=== PATIENT | female | born 1990 | race Caucasian/White ===

== ENCOUNTER 2021-06-05 12:32 | Emergency (ER) | payer OTHER ==
[~2021-06-05] VITALS: Ht 149.9 cm; Wt 88.5 kg
[2021-06-05 12:32] VITALS: BP 145/76
--- NOTE | 2021-06-05 12:32 | NUR ---
wes CASEY via gurney to bed 06.
--- NOTE | 2021-06-05 12:45 | NUR ---
Patient is a 31 y/o female [place] from work c/o chest pain, sudden onset, non provoked, substernal 06/18. Pain is now intermittent, lasting two minutes. Patient states that she was given ASA but has not felt relief; pain continues to be a pulsating pain 06/18. PMH: denies Rx: denies NKA
--- NOTE | 2021-06-05 13:00 | NUR ---
semiconductor processing technician at the bedside.
--- NOTE | 2021-06-05 13:20 | NUR ---
Lab at bedside for blood draw.
[2021-06-05 13:26] LABS: BASOPHILS % (AUTO) 0.3 % (0.0-2.0); EOSINOPHILS # (AUTO) 0.2 K/uL (0-0.4); EOSINOPHILS % (AUTO) 2.8 % (0.0-4.0); HEMATOCRIT 37.4 % (36-48); HEMOGLOBIN 12.4 g/dL (12.0-16.0); LYMPHOCYTES % (AUTO) 31.2 % (20.5-51.1); MEAN CORPUSCULAR HEMOGLOBIN 27 pg (27-31); MEAN CORPUSCULAR HGB CONC 33 g/dL (33-37); MONOCYTES # (AUTO) 0.4 K/uL (0.8-1.0); MONOCYTES % (AUTO) 5.8 % (1.7-9.3); NEUTROPHILS # (AUTO) 3.7 K/uL (1.8-7.7); NEUTROPHILS % (AUTO) 59.9 % (42.2-75.2); PLATELET COUNT (AUTO) 230 K/uL (140-450); RED BLOOD CELL COUNT(AUTO) 4.56 MIL/uL (4.20-5.40); WHITE BLOOD COUNT (AUTO) 6.3 K/uL (4.8-10.8)
[2021-06-05 13:38] LABS: ANION GAP 9.7 (8-16); CARBON DIOXIDE 26.6 mmol/L (21-32); CREATININE 0.6 mg/dL (0.6-1.3); POTASSIUM 3.3 mmol/L (3.5-5.1)
--- NOTE | 2021-06-05 14:00 | NUR ---
Dr. Soriano at the bedside evaluating the patient.
[2021-06-05] MEDS ORDERED: KETOROLAC 60 MG/2 ML VIAL IM ONE (14:05)
--- NOTE | 2021-06-05 15:00 | NUR ---
Patient resting comfortably in bed with family at the bedside. VSS, bed locked in the lowest position and call light within reach.
--- NOTE | 2021-06-05 15:20 | NUR ---
Dr. Soriano at the bedside re-evaluating the patient.
[2021-06-05] MEDS ORDERED: NAPR-1704 PO (15:22)
[2021-06-05 15:38] VITALS: BP 145/76
== END 2021-06-05 15:39 | disposition home or self-care (01) ==
LOC: MED 12:32
DX: R07.89 Other chest pain (principal); E87.6 Hypokalemia; Z79.899 Other long term (current) drug therapy; Z98.890 Other specified postprocedural states
CPT/HCPCS: 36415; 71045; 80048; 81025; 84484; 85025; 93005; 96372; 99285; J1885